=== PATIENT | female | born 1970 | race Caucasian/White ===

== ENCOUNTER 2016-12-29 05:50 | Day surgery (SDC) | payer OTHER ==
[2016-12-29] MEDS ORDERED: Lactated Ringers 1,000 ML IV SCH (07:00)
[2016-12-29] MEDS ORDERED: Versed 2 MG/2 ML Injection IV ONE (08:00)
[2016-12-29] MEDS ORDERED: DIPRIVAN 200 MG/20 ML IV ONE ×2 (08:00)
[2016-12-29] MEDS ORDERED: SUBLIMAZE 100 MCG/2 ML IV ONE (08:00)
[2016-12-29] MEDS ORDERED: Lactated Ringers 1,000 ML IV ONE (08:44)
--- NOTE | 2016-12-29 09:15 | OP ---
SURGERY DATE/TIME: 12/29/2016817 PREOPERATIVE DIAGNOSIS: Screening colonoscopy. POSTOPERATIVE DIAGNOSIS: Descending colon polyp x1. PROCEDURE: Colonoscopy. SURGEON: Willi Castellon M.D. ANESTHESIA: MAC. ESTIMATED BLOOD LOSS: Minimal. SPECIMENS: One hot forceps polypectomy from the descending colon. DESCRIPTION OF PROCEDURE: After informed written consent was obtained, the patient was taken to the endoscopy suite. She underwent monitored anesthesia. A digital rectal exam showed normal sphincter tone and no internal lesions. The scope was then inserted in the rectum and sequentially the entire colonic mucosa was traversed. The level of cecum was reached and verified with direct visualization of ileocecal valve. Upon withdrawal careful mucosal inspection revealed a small sessile polyp in the descending colon. It was grasped with forceps and removed with cautery. The entire lesion was removed with good hemostasis following removal. No other abnormalities were encountered. Prior to withdrawal retroflexion was performed and showed no internal lesions. The scope was removed and the patient was transferred to the recovery room in excellent condition.
[2016-12-29 09:21] VITALS: O2SAT 100
[2016-12-29 09:49] VITALS: BP 131/76; PULSE 65
== END 2016-12-29 09:50 | disposition home or self-care (01) ==
LOC: SDC 05:50
PROVIDERS: ATTEND Family Medicine
PROC: 0DBM8ZX Excision of Descending Colon, Via Natural or Artificial Opening Endoscopic, Diagnostic (ICD-10-PCS; principal; 2016-12-29)
DX: D12.4 Benign neoplasm of descending colon (principal)
CPT/HCPCS: 00810; 36415; 88305; J2250; J2704; J3010

== ENCOUNTER 2017-12-15 09:54 | Day surgery (SDC) | payer OTHER ==
--- NOTE | 2017-12-14 09:40 | HP ---
DATE OF SURGERY: 12/15/2017 ANTICIPATED PROCEDURE: Cholecystectomy. HISTORY OF PRESENT ILLNESS: The patient has symptomatic cholelithiasis confirmed by Dr. Bajwa. PAST MEDICAL HISTORY: ALLERGIES: DEMEROL. MEDICATIONS: Metoprolol. PAST SURGICAL HISTORY: section x3. Hysterectomy. Shoulder surgery. SOCIAL HISTORY: Negative. FAMILY HISTORY: Negative. REVIEW OF SYSTEMS: Negative. PHYSICAL EXAMINATION: VITAL SIGNS: Normal. CHEST: Clear. COR: Regular. ABDOMEN: Satisfactory. IMPRESSION: Symptomatic cholelithiasis. PLAN: Laparoscopic cholecystectomy.
[~2017-12-15 09:54] MED LIST: Lactated Ringers 1,000 ML IV ONE; Lactated Ringers 1,000 ML IV SCH; MEFOXIN 2 GM PREMIX** 2 GM/50 ML ML IV SCH; Sensorcaine 0.25% 10 ML ONE
[2017-12-15] MEDS ORDERED: Decadron 4 MG INJ IV ONE (09:55)
[2017-12-15] MEDS ORDERED: DIPRIVAN 200 MG/20 ML IV ONE (09:55)
[2017-12-15] MEDS ORDERED: Zemuron 100 MG/10 ML IJ ONE (09:55)
[2017-12-15] MEDS ORDERED: Versed 2 MG/2 ML Injection IV ONE (09:55)
[2017-12-15] MEDS ORDERED: SUBLIMAZE 100 MCG/2 ML IV ONE (09:55)
[2017-12-15] MEDS ORDERED: TORAdol 30 mg Injection IJ ONE (09:55)
[2017-12-15] MEDS ORDERED: Zofran 4 MG/2 ML VIAL IV ONE (09:55)
[2017-12-15] MEDS ORDERED: BRIDION 200MG/2ML IV ONE (09:55)
[2017-12-15] MEDS ORDERED: SUBLIMAZE 250 MCG/5 ML IV ONE (09:55)
[2017-12-15] MEDS ORDERED: MEFOXIN 2 GM PREMIX** 2 GM/50 ML ML IV ONE (10:26)
[2017-12-15] MEDS ORDERED: SUBLIMAZE 100 MCG/2 ML ONE (12:47)
--- NOTE | 2017-12-15 12:56 | OP ---
SURGERY DATE/TIME: 12/15/2017 1126 PREOPERATIVE DIAGNOSIS: Symptomatic cholelithiasis. POSTOPERATIVE DIAGNOSIS: Symptomatic cholelithiasis. PROCEDURE: Laparoscopic cholecystectomy. SURGEON: Dr. Dobson. ANESTHESIA: General endotracheal tube per Milo Loera CRNA. ESTIMATED BLOOD LOSS: Minimal. COMPLICATIONS: None. INDICATIONS: A patient requiring cholecystectomy. Taken to surgery. DESCRIPTION OF PROCEDURE AND FINDINGS: General anesthetic, routine prep and drape. Time out performed. Veress needle inserted. Opening pressure of 1, insufflating pressure 14. A 10 at the umbilicus. Three - 5's upper abdomen. Good visualization. Cystic duct defined. Cystic artery defined. Both structures triply clipped and transected. Clips noted to be across and well approximated. Gallbladder rolled out of gallbladder fossa. The gallbladder delivered through upper abdominal port without violation as the hole closure device was used. CO2 exsufflated. Skin closed with 4-0 Vicryl and Steri-Strips. The patient tolerated the procedure satisfactorily.
[2017-12-15 15:03] VITALS: O2SAT 95
[2017-12-15 15:12] VITALS: BP 145/78; PULSE 76
== END 2017-12-15 15:12 | disposition home or self-care (01) ==
LOC: SDC 09:54
PROVIDERS: ATTEND Surgery
DX: K80.20 Calculus of gallbladder without cholecystitis without obstruction (principal)
CPT/HCPCS: 88304; 94250; J0694; J1100; J1885; J2250; J2405; J2704; J3010

== ENCOUNTER 2019-09-27 10:00 | Day surgery (SDC) | payer OTHER ==
--- NOTE | 2019-09-25 15:17 | HP ---
DATE OF SURGERY: 09/27/2019 ADMISSION DIAGNOSIS: Abdominal adhesions symptomatic. ANTICIPATED PROCEDURE: Laparoscopy, lysis of adhesions possible open. HISTORY OF PRESENT ILLNESS: PAST MEDICAL HISTORY: ALLERGIES: DEMEROL. MEDICATIONS: Metoprolol, omeprazole. PAST SURGICAL HISTORY: section. Hysterectomy. Cholecystectomy. Shoulder surgery. SOCIAL HISTORY: Negative. FAMILY HISTORY: Negative. PHYSICAL EXAMINATION: VITAL SIGNS: Normal. CHEST: Clear. COR: Regular. IMPRESSION: Tender lower abdomen. Laparoscopy with lysis of adhesions. DATE OF SURGERY: 09/27/2019 ADMISSION DIAGNOSIS: Abdominal adhesions symptomatic. ANTICIPATED PROCEDURE: Laparoscopy, lysis of adhesions possible open. HISTORY OF PRESENT ILLNESS: PAST MEDICAL HISTORY: ALLERGIES: DEMEROL. MEDICATIONS: Metoprolol, omeprazole. PAST SURGICAL HISTORY: section. Hysterectomy. Cholecystectomy. Shoulder surgery. SOCIAL HISTORY: Negative. FAMILY HISTORY: Negative. PHYSICAL EXAMINATION: VITAL SIGNS: Normal. CHEST: Clear. COR: Regular.
[~2019-09-27 10:00] MED LIST changes: -Lactated Ringers 1,000 ML IV SCH; -MEFOXIN 2 GM PREMIX** 2 GM/50 ML ML IV SCH
[2019-09-27] MEDS ORDERED: Lactated Ringers 1,000 ML IV ONE (10:12)
[2019-09-27] MEDS ORDERED: Lactated Ringers 1,000 ML IV SCH (10:30)
[2019-09-27] MEDS ORDERED: DIPRIVAN 200 MG/20 ML IV ONE (10:49)
[2019-09-27] MEDS ORDERED: Zemuron 100 MG/10 ML ONE (10:49)
[2019-09-27] MEDS ORDERED: Versed 2 MG/2 ML Injection ONE (10:49)
[2019-09-27] MEDS ORDERED: SUBLIMAZE 250 MCG/5 ML ONE (10:49)
[2019-09-27] MEDS ORDERED: Decadron 4 MG INJ ONE ×2 (10:52)
[2019-09-27] MEDS ORDERED: Xylocaine-Mpf 2% 5 Ml Vial ONE (11:40)
[2019-09-27] MEDS ORDERED: BRIDION 200MG/2ML IV ONE (11:52)
[2019-09-27] MEDS ORDERED: Zofran 4 MG/2 ML VIAL ONE (11:52)
[2019-09-27] MEDS ORDERED: Compazine 10 MG/2 ML ONE (12:52)
[2019-09-27 14:39] VITALS: BP 131/57; PULSE 64; O2SAT 97
--- NOTE | 2019-09-28 08:11 | OP ---
SURGERY DATE/TIME: 09/27/2019 1138 PREOPERATIVE DIAGNOSIS: Lower abdominal pain suprasymphyseal. POSTOPERATIVE DIAGNOSIS: Adhesions of the omentum against the anterior abdominal wall and against the bladder and against the colon. PROCEDURE: Laparoscopy with omental lysis. SURGEON: Liam Dobson M.D. ANESTHESIA: General. COMPLICATIONS: None. CONDITION: Stable. INDICATION: A patient requiring intraoperative evaluation. DESCRIPTION OF PROCEDURE: Taken to surgery. General anesthetic. Routine prep and drape. She had previous cholecystectomy and 5 port. A Veress needle was placed in the right upper quadrant. It seemed just a little fussy so Veress needle was moved to left upper quadrant which was excellent. A 5 port was placed. There was a little intraomental gas in the right upper quadrant. No suggestion of any issue. No fluid. No hematoma. Looking down the omentum was stuck against the anterior abdominal wall from the umbilicus down to and onto the bladder and onto the colon. The omentum was taken down anteriorly first and it was taken off the colon. The colon itself from the left corner of the bladder and then down towards the pelvis, it was basically anchored up against the bladder. There was no clot. Small bowel in front of this. It looked like a very strategic adhesion which was in an excellent position with no kinking, no issues. It did not look prudent to take this adhesion down as it would cause raw areas and areas where the small bowel actually could get caught. This was perfectly smooth and this was left. The right ovary was present and was normal. The right residual tube was normal. The rectal area was normal. There were no adhesions of the omentum against the small bowel and the small bowel was totally eviscerated out of the pelvis. The patient was placed in moderate Trendelenburg. At this time it looked like the procedure had been completed. The symptomatic adhesions to abdominal wall and upper bladder had been taken down. The small bowel was totally free and with no suggestion of any adhesions or any obstruction. They were placed back in the pelvis both mechanically and by reversing the Trendelenburg. The appendix was down on the right and looked normal. It was down on the right side with the cecum and the small bowel in the middle. The omentum was totally free and was then brought down and laid down anteriorly. Three - 5 ports had been used. No hole closure device. The holes were all dry. Skin closed with 4-0 Vicryl. CO2 had been suctioned. The patient tolerated the procedure satisfactorily. One picture was given to the .
== END 2019-09-27 14:45 | disposition home or self-care (01) ==
LOC: SDC 10:00
PROVIDERS: ATTEND Surgery
DX: R10.30 Lower abdominal pain, unspecified (principal); N99.4 Postprocedural pelvic peritoneal adhesions
CPT/HCPCS: J1100; J2250; J2405; J2704; J3010

== ENCOUNTER 2021-09-17 07:13 | Day surgery (SDC) | payer OTHER ==
--- NOTE | 2021-09-14 11:02 | HP ---
DATE OF SURGERY: 09/17/2021 HISTORY OF PRESENT ILLNESS: The patient is a 51-year-old presents with complaints of upper right-sided abdominal pain. The patient complaining of bad reflux at times. She states that throat feels like it is on fire. The patient is also having some nausea at times and a lot of bloating. She also reports there is some diarrhea and constipation at times. Denies rectal bleeding. The patient stated that she usually has an EGD about every two years for dilatation. The patient's last colonoscopy was years ago and the patient reports polyps. PAST MEDICAL HISTORY: Hypertension, reflux, hyperlipidemia. PAST SURGICAL HISTORY: Three sections. Hysterectomy. Left elbow surgery. Right shoulder. Laparoscopic lysis of adhesions. Laparoscopic cholecystectomy 2018. ERCP. ALLERGIES: MEPERIDINE. MEDICATIONS: Metoprolol, vitamin D, omeprazole, Fenofibrate, ranolazine. FAMILY HISTORY: Breast cancer. Lymphoma. SOCIAL HISTORY: None reported. REVIEW OF SYSTEMS: CONSTITUTIONAL: Denies fever or chills. CHEST: Denies shortness of breath. CVS: Denies chest pain. ABDOMEN: Reports abdominal pain, nausea, vomiting, diarrhea, constipation. Denies rectal bleeding. PHYSICAL EXAMINATION: GENERAL: No acute distress. CHEST: Nonlabored. No shortness of breath. CVS: Regular rate and rhythm. ABDOMEN: Soft, nontender. IMPRESSION: History of colon polyps, right upper quadrant pain, epigastric pain, complains of dysphagia. PLAN: EGD and colonoscopy with Dr. Liam Dobson. As dictated by Minda Lockett NP.
[2021-09-17] MEDS ORDERED: Lactated Ringers 1,000 ML IV SCH (08:00)
[2021-09-17] MEDS ORDERED: DIPRIVAN 200 MG/20 ML IV ONE ×2 (09:48→10:55)
[2021-09-17] MEDS ORDERED: Versed 2 MG/2 ML Injection ONE (10:37)
--- NOTE | 2021-09-17 11:33 | OP ---
SURGERY DATE/TIME: 09/17/2021 1040 PREOPERATIVE DIAGNOSES: 1) Right upper quadrant pain. Her gallbladder is surgically absent. She has reflux symptoms. She has nausea, vomiting, bloating. 2) She has a history of polyps and is due for a colonoscopy. POSTOPERATIVE DIAGNOSIS: Grade 1 over 4 gastroesophageal reflux disease. She is on anti-reflux treatment and it seems to be under control. I do not have a good explanation for the right upper quadrant pain from the EGD. PROCEDURES: 1) EGD. 2) Colonoscopy. SURGEON: Liam Dobson M.D. ANESTHESIA: MAC. COMPLICATIONS: None. CONDITION: Stable. INDICATION: The patient has right upper quadrant pain. DESCRIPTION OF PROCEDURE: She is taken to endoscopy. Endoscope inserted. Pharyngoesophageal junction normal. Esophagus normal down to gastroesophageal junction. Grade 1 over 4 gastroesophageal reflux disease. She is on antireflux treatment and it seems under control. Fundus, body and antrum satisfactory. Pylorus satisfactory. Duodenal bulb satisfactory. Second portion satisfactory. Scope looped upon itself and was normal. The scope withdrawn. IMPRESSION: Grade 1 over 4 gastroesophageal reflux disease basically satisfactory. Colonoscopy performed. The cecum was down in the pelvis. It was just slightly vague. On circumferential withdrawal cecum, ascending, hepatic, transverse, splenic, descending, sigmoid, rectum, anus mild internal hemorrhoids. The patient tolerated the procedure satisfactorily. Follow up in five years as she does have a history of polyps but none today.
[2021-09-17 12:18] VITALS: BP 123/80; PULSE 75; O2SAT 97
== END 2021-09-17 12:05 | disposition home or self-care (01) ==
LOC: SDC 07:13
PROVIDERS: ATTEND Surgery
DX: Z09 Encounter for follow-up examination after completed treatment for conditions other than malignant neoplasm (principal); Z86.010 Personal history of colon polyps; K21.9 Gastro-esophageal reflux disease without esophagitis; R10.11 Right upper quadrant pain
CPT/HCPCS: J2250; J2704

== ENCOUNTER 2023-03-31 06:16 | Day surgery (SDC) | payer BC ==
[2023-03-31] MEDS ORDERED: Lactated Ringers 1,000 ML IV SCH (06:30)
[2023-03-31 06:58] VITALS: RESP 18
[2023-03-31] MEDS ORDERED: DIPRIVAN 200 MG/20 ML IV ONE ×2 (08:04→08:14)
[2023-03-31] MEDS ORDERED: Xylocaine-Mpf 2% 5 Ml Vial ONE (08:04)
[2023-03-31] MEDS ORDERED: Versed 2 MG/2 ML Injection ONE (08:04)
[2023-03-31] MEDS ORDERED: SUBLIMAZE 100 MCG/2 ML ONE (08:22)
[2023-03-31 09:29] VITALS: TEMP 97
[2023-03-31 09:36] VITALS: PULSE 65; O2SAT 100
[2023-03-31 09:42] VITALS: BP 138/75
--- NOTE | 2023-03-31 10:48 | OP ---
SURGERY DATE/TIME: 03/31/2023 0804 PREOPERATIVE DIAGNOSIS: History of colon polyps. POSTOPERATIVE DIAGNOSIS: Mild rectal colitis. PROCEDURE: Colonoscopy. SURGEON: Willi Castellon M.D. ANESTHESIA: MAC by Doroteo Ribeiro CRNA. ESTIMATED BLOOD LOSS: Minimal. SPECIMENS: Three cold forceps biopsies from the rectum. DESCRIPTION OF PROCEDURE: After informed written consent was obtained, the patient was taken to the endoscopy suite. She was placed in left lateral decubitus position and anesthesia was titrated to the desired level of consciousness. Digital rectal exam showed normal sphincter tone and no internal lesions. The scope was inserted into the rectum and sequentially the entire colonic mucosa was traversed. The level of cecum was reached and verified with direct visualization of the ileocecal valve. Upon withdrawal careful mucosal inspection revealed no gross abnormalities until the level of the rectum was reached. There was mild colitis in the distal rectum. 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 Retroflexion showed no internal lesions. The biopsy site had no active bleeding following removal. The scope was removed and the patient was transferred to the recovery room in good condition.
== END 2023-03-31 09:41 | disposition home or self-care (01) ==
LOC: SDC 06:16
PROVIDERS: ATTEND Family Medicine
DX: Z09 Encounter for follow-up examination after completed treatment for conditions other than malignant neoplasm (principal); Z86.010 Personal history of colon polyps; K52.9 Noninfective gastroenteritis and colitis, unspecified
CPT/HCPCS: 93005; J2250; J2704; J3010

== ENCOUNTER 2025-05-10 06:02 | Day surgery (SDC) | payer BC ==
[2025-05-10] MEDS: Lactated Ringers 1,000 ML IV SCH (06:20)
[2025-05-10 06:28] VITALS: RESP 18
[2025-05-10] MEDS ORDERED: propofoL IV ONE ×2 (07:22→07:36)
[2025-05-10 08:24] VITALS: BP 109/68; PULSE 74; TEMP 97.2; O2SAT 100
--- NOTE | 2025-05-13 08:46 | OP ---
SURGERY DATE/TIME: 05/10/2025 [id number] PREOPERATIVE DIAGNOSIS: History of colon polyp. POSTOPERATIVE DIAGNOSIS: Normal colon. PROCEDURE: Colonoscopy. SURGEON: Pete Chaudhry MD. ANESTHESIA: Medication given by the anesthesia department. INDICATIONS: The patient is a 54-year-old white female presenting now at 5 years, having previously had a colonoscopy with polyp removed. The patient was felt to need to have endoscopic evaluation. She was apprised of the risks of the procedure including risk of perforation, phlebitis, untoward reaction to medication, bleeding, and missed lesions. The patient verbalized her understanding and desired to have procedure performed. DESCRIPTION OF PROCEDURE AND FINDINGS: The patient was given medication by the anesthesia department and had continuous pulse oximetry, ECG monitoring, and intermittent blood pressure monitoring during the examination. She was placed in left lateral decubitus position. Digital rectal examination was performed and revealed normal anal sphincter tone and no masses. The flexible Olympus videocolonoscope was used to intubate the rectum. A view of the colon was developed sequentially to the cecum. Upon insertion and withdrawal, no mucosal lesions were encountered. The scope was removed from the patient who tolerated the procedure well and was sent back to outpatient recovery in good condition. The prep was noted to be fair to good.
== END 2025-05-10 08:31 | disposition home or self-care (01) ==
LOC: SDC 06:02
PROVIDERS: ATTEND Family Medicine
DX: Z09 Encounter for follow-up examination after completed treatment for conditions other than malignant neoplasm (principal); Z86.0100 Personal history of colon polyps, unspecified